=== PATIENT | female | born 1990 | race Caucasian/White ===

== ENCOUNTER 2019-12-12 11:35 | Emergency (ER) | payer MEDICAID ==
[~2019-12-12] VITALS: Ht 162.6 cm; Wt 70.0 kg
[2019-12-12] MEDS ORDERED: SODIUM CHLORIDE 0.9% 1,000 ML IV ONE (13:11)
[2019-12-12 13:58] LABS: CLARITY URINE CLEAR (CLEAR); COLOR URINE YELLOW (YELLOW); KETONES URINE NEGATIVE (NEGATIVE); LEUKOCYTE ESTERASE URINE NEGATIVE (NEGATIVE); NITRITE URINE NEGATIVE (NEGATIVE); OCCULT BLOOD URINE TRACE (NEGATIVE); PH URINE 6.5 (4.5-8.0); PROTEIN URINE NEGATIVE (NEGATIVE); SPECIFIC GRAVITY URINE 1.015 (1.005-1.030); UROBILINOGEN URINE 0.2 E.U./dL (0.2-1.0)
[2019-12-12 14:02] LABS: CHLORIDE 109 mEq/L (98-107)
[2019-12-12 14:09] LABS: BASOPHILS % 0.7 % (0.0-2.0); EOSINOPHILS % 1.8 % (0.0-5.0); HEMATOCRIT. 39.2 % (36.0-48.0); HEMOGLOBIN. 13.5 g/dL (12.0-16.0); LYMPHOCYTES % 36.4 % (20.0-50.0); MEAN CORPUSCULAR HEMOGLOBIN 30.4 pg (28.0-32.0); MEAN CORPUSCULAR VOLUME 88.5 fL (81.0-99.0); MEAN PLATELET VOLUME 8.2 fl (7.4-10.4); MONOCYTES % 6.7 % (2.0-8.0); NEUTROPHILS % 54.4 % (40.0-76.0); PLATELET 321 x1000/uL (130-400); RED BLOOD CELL COUNT 4.43 mill/uL (4.2-5.4); RED CELL DISTRIBUTION WIDTH 13.2 % (11.6-14.6)
[2019-12-12 14:14] LABS: B-HCG QUANTITATIVE < 1 mIU/mL (<3)
[2019-12-12] MEDS ORDERED: IOHEXOL-300 100 ML BOTTLE ONE (17:39)
[2019-12-12] MEDS ORDERED: METRONIDAZOLE 500 MG PREMIX 100 ML IV ONE (18:00)
[2019-12-12] MEDS ORDERED: AMOXICILLIN/POTASSIUM CLAVULANATE 875/125MG TAB PO ONE (18:00)
[2019-12-12 18:30] VITALS: BP 119/82
== END 2019-12-12 18:30 | disposition home or self-care (01) ==
LOC: ER 11:35
DX: K57.92 Diverticulitis of intestine, part unspecified, without perforation or abscess without bleeding (principal)
CPT/HCPCS: 36415; 74177; 76830; 76856; 80053; 81003; 81025; 84702; 85025; 86850; 86900; 86901; 87040; 96365; 99284; J3490; J7030; Q9967